=== PATIENT | male | born 1995 ===

== ENCOUNTER → 2018-01-20 | Outpatient (CLI) | payer OTHER | LOC: BMCIMAGING 13:22 | PROVIDERS: ATTEND Family Medicine | DX: S52.022A Displaced fracture of olecranon process without intraarticular extension of left ulna, initial encounter for closed fracture (principal) ==

== ENCOUNTER 2018-01-24 12:20 | Day surgery (SDC) | payer OTHER ==
[2018-01-24] MEDS ORDERED: VANCOMYCIN PHARMACY TO DOSE MISC ONE (12:27)
[2018-01-24] MEDS ORDERED: LIDOCAINE 1% 2 ML INJ ID PRN (12:28)
[2018-01-24] MEDS ORDERED: LR 1,000 ML IV ONE (12:28)
[2018-01-24] MEDS ORDERED: MIDAZOLAM 2 MG/2 ML VIAL IVP ONE (13:10)
--- NOTE | 2018-01-24 13:11 | PDANEPAE ---
ANE History of Present Illness ORIF L elbow ANE Past Medical History - Pulmonary History Hx Sleep Apnea: No ANE Review of Systems Review of Systems: - Exercise capacity Exercise capacity: >=4 METS ANE Patient History - Allergies Allergies/Adverse Reactions: amoxicillin Allergy (Verified 01/23/18 16:55) - Home Medications Home medications: home medication list seen and reviewed Home Medications: Hydrocodone-Acetamin 5-325 mg 01/24/18 [Last Taken 01/23/18 22:30] - NPO status NPO Status: no food or drink >8 hours NPO Since - Liquids (Date): 01/23/18 NPO Since - Liquids (Time): 23:59 NPO Since - Solids (Date): 01/23/18 NPO Since - Solids (Time): 22:00 - Anes Hx Anes Hx: no prior problems - Smoking Hx Smoking Status: Never smoked - Alcohol Use Alcohol Use: Rarely - Family Anes Hx Family Anes Hx: none ANE Labs/Vital Signs - Vital Signs Blood Pressure: 139/81 Heart Rate: 66 Respiratory Rate: 16 O2 Sat (%): 97 Height: 190.5 cm Weight: 70.307 kg ANE Physical Exam - Airway Mallampati Score: Class 1 Mouth exam: normal dental/mouth exam - Pulmonary Pulmonary: no respiratory distress - Cardiovascular Cardiovascular: regular rate and rhythym - ASA Status ASA Status: I ANE Anesthesia Plan Anesthesia Plan: GA w LMA
[2018-01-24] MEDS ORDERED: VANCOMYCIN 1 GM in NS 250 ML IV ONE (13:30)
--- NOTE | 2018-01-24 13:41 | PDHPUP ---
History & Physical Update H&P update statement: This history and physical update is based on an assessment of the patient which was completed after admission or registration (within 24 hours), but prior to the surgery/procedure. H&P update: H&P reviewed & patient examined, no change in patient's condition since H&P completed
[2018-01-24] MEDS ORDERED: BUPIVACAINE 0.5% 10 ML SDV ONE (16:01)
[2018-01-24] MEDS ORDERED: MIDAZOLAM 2 MG/2 ML VIAL ONE (16:11)
[2018-01-24] MEDS ORDERED: PROPOFOL/EMULSION 500 MG/50 ML BOTTLE IV ONE (16:29)
[2018-01-24] MEDS ORDERED: LIDOCAINE 2% 100 MG/5 ML SYR ONE (16:32)
[2018-01-24] MEDS ORDERED: fentaNYL 100 MCG/2 ML INJ ONE ×3 (16:32→18:53)
[2018-01-24] MEDS ORDERED: LIDOCAINE 2% JELLY 5 ML TUBE ONE (16:32)
[2018-01-24] MEDS ORDERED: DEXAMETHASONE 4 MG/ML VIAL ONE (16:49)
[2018-01-24] MEDS ORDERED: ONDANSETRON 4 MG/2 ML VIAL ONE (16:49)
[2018-01-24] MEDS ORDERED: PROPOFOL 200 MG/20 ML VIAL ONE (18:01)
[2018-01-24] MEDS ORDERED: NALOXONE HCL 0.4 MG/ML INJ IVP PRN (18:13)
[2018-01-24] MEDS ORDERED: HYDROCODONE/APAP 5/325 TAB PO PRN (18:13)
[2018-01-24] MEDS ORDERED: ONDANSETRON 4 MG/2 ML VIAL IVP PRN (18:13)
[2018-01-24] MEDS ORDERED: ALBUTEROL 3 ML DEYVIAL IH PRN (18:13)
[2018-01-24] MEDS ORDERED: PROMETHAZINE HCL 25 MG/ML INJ IVP PRN (18:13)
[2018-01-24] MEDS ORDERED: LR 500 ML IV PRN (18:13)
[2018-01-24] MEDS ORDERED: OXYCODONE/APAP 5/325 TAB PO PRN (18:13)
[2018-01-24] MEDS ORDERED: ACETAMINOPHEN 500 MG TAB PO PRN (18:13)
[2018-01-24] MEDS ORDERED: METOCLOPRAMIDE 10 MG/2 ML VIAL IVP PRN (18:13)
[2018-01-24] MEDS ORDERED: DEXAMETHASONE 4 MG/ML VIAL IVP PRN (18:13)
[2018-01-24] MEDS ORDERED: PHENYLEPHRINE HCL 100 MCG/ML SYR IVP PRN (18:13)
[2018-01-24] MEDS ORDERED: LABETALOL HCL 5 MG/ML 20 ML MDV IVP PRN (18:13)
[2018-01-24] MEDS: fentaNYL 100 MCG/2 ML INJ IVP PRN ×2 (18:56→19:07)
[2018-01-24] MEDS ORDERED: HYDROCODONE/APAP 5/325 TAB ONE (19:13)
[2018-01-24 19:36] VITALS: PULSE 79
[2018-01-24 20:26] VITALS: BP 143/84; RESP 14; O2SAT 97
[2018-01-24 21:03] VITALS: TEMP 97.2
--- NOTE | 2018-01-25 12:13 | POSTANESTH ---
Post Anesthetic Evaluation Cardiovascular Status: Normal, Stable Respiratory Status: Normal, Stable Level of Consciousness/Mental Status: Can Participate in Eval Pain Control: Adequate, Prn Tx Ordered Nausea/Vomiting Control: Adequate, Prn Tx Ordered Complications Possibly Related to Anesthesia: None Noted (evaluation done at 1915 late documentation)
--- NOTE | 2018-01-25 13:47 | GOP ---
[f rep st] OPERATIVE REPORT DATE OF OPERATION: 01/24/2018 SURGEON: Shyam العراقي MD ANESTHESIA: General. PREOPERATIVE DIAGNOSIS: Displaced left olecranon fracture. POSTOPERATIVE DIAGNOSIS: Displaced left olecranon fracture. PROCEDURE PERFORMED: Open reduction and internal fixation of left olecranon. FINDINGS: ESTIMATED BLOOD LOSS: 5 cc. INDICATIONS: This patient presented my clinic last week after presenting to urgent care following a fall. He fell at home on a slippery deck, striking his elbow against the ground. He experienced pain and swelling at that level, and inability to bear weight, and inability to move the elbow. He was seen at the urgent care. X-ray was taken, which showed a displaced olecranon fracture. He was then seen by me in clinic. Surgery is indicated for this injury. I discussed with him risks and benefits of surgery. Risks include pain, bleeding , infection, damage to surrounding structures, elbow stiffness, nonunion, delayed union, need for further surgeries, including a plate removal symptomatic hardware. DESCRIPTION OF PROCEDURE: The patient was seen in the preoperative holding area. He was given the opportunity ask any more questions. All his questions were answered. Consent was signed. The operative site was marked. Great care was taken to pad all the bony prominences prior to induction of anesthesia. General anesthesia was induced by the anesthesia team. He was then very carefully transferred to the lateral decubitus position, with the left side up. Axillary roll was used. Great care was taken to ensure that all bony prominences were padded in this position. 1 g of vancomycin was given prior to the incision. Time-out was called, including surgical and anesthesia teams, confirming the surgical site of the procedure to be performed. The left upper extremity was prepped and draped in the usual sterile fashion. Esmarch was used to exsanguinate the left upper extremity, and a tourniquet was inflated to 250 mmHg. I made a standard posterior incision to the olecranon, curving it radially, progressing down through the skin to the bone, carefully elevated the fascia off the bone. Visualized the fracture. Made a split in the triceps. The fracture was cleaned out. The hematoma was cleaned out. The bony reduction tenaculum was then used to compress the fracture and reduce it. An anatomic reduction was achieved. The shortest olecranon plate was then chosen, held down to the bone with a K-wire. Then a compression screw was used in the oval hole to hold the plate onto the bone. The oblique screw was then drilled in the lag fashion, over-drilling the near fragment, then placed, then a good bite was achieved that compressed the fracture nicely. The remainder of the distal locking screws were placed, then the proximal locking screws were placed. X-ray was taken, confirming anatomic reduction. None of the screws were proud. The screws were well short of the articular surface. He had a smooth motion of the joint with full extension and full flexion, full rotation. A #2 FiberWire was placed under the plate, and this was then tied around the triceps as a tension band type of suture, and an 0 Vicryl was used to repair the triceps split to cover up the plate. The fascia was closed with 0 Vicryl. The wound was closed in layers with 3-0 Monocryl and 3-0 nylon running. Sterile dressing was applied. The patient placed in a long-arm splint. Tolerated the procedure well, was taken to the PACU in stable condition. IMPLANTS USED: [employer] olecranon plating system. POSTOPERATIVE CONDITION: Stable. POSTOPERATIVE PLAN: The patient will follow up with me in clinic in 2 weeks. He is to see a hand therapist within a week. He will be placed in a removable brace at 90 degrees and be allowed gentle range of motion out of the brace. /[id number]/MODL MTDD
== END 2018-01-24 20:30 | disposition home or self-care (01) ==
LOC: FSGY 12:20
PROVIDERS: ATTEND Orthopaedic Surgery Hand Surgery
PROC: 0PSL04Z Reposition Left Ulna with Internal Fixation Device, Open Approach (ICD-10-PCS; principal; 2018-01-24 13:15)
DX: S52.022A Displaced fracture of olecranon process without intraarticular extension of left ulna, initial encounter for closed fracture (principal); W01.0XXA Fall on same level from slipping, tripping and stumbling without subsequent striking against object, initial encounter; Y92.018 Other place in single-family (private) house as the place of occurrence of the external cause; Y99.8 Other external cause status; Z88.0 Allergy status to penicillin
CPT/HCPCS: C1713; J1100; J2001; J2250; J2270; J2405; J2704; J3010; J3370